=== PATIENT | female | born 1995 | race Caucasian/White ===

== ENCOUNTER 2024-07-26 16:16 | Emergency (ER) | payer BC, SELFPAY ==
[2024-07-26 16:28] VITALS: BP 114/70; PULSE 115; RESP 18; TEMP 37.6; O2SAT 94; BMI 23.0
--- NOTE | 2024-07-26 18:35 | ED.GENADULT ---
HPI - General Adult General Date Seen: 07/26/24 Chief complaint: Flank Pain Stated complaint: Potential Kidney Infection Time Seen by Provider: 07/26/24 18:32 History of Present Illness HPI narrative: 28-year-old female presenting to the ER today with fever, chills, right flank pain. She does have a history of asthma. No history of UTIs or kidney infections. No history of kidney stones. She has been experiencing illness for the past couple of days with pain predominantly in her right flank also some fever and chills. Mother mild achiness but no other significant back pain. She also has a history of asthma and has been having some cough with production of some sputum in small flecks of hemoptysis for the past couple of days. Mild sore throat. No trouble swallowing. No significant headache. Appetite been decreased, , but she has been drinking plenty of fluids. Bowel movements have been normal. No dysuria, urgency, frequency but she has noted somewhat dark colored urine for the past couple of days. No anterior abdominal pain. She has history of asthma and says she occasionally had to use her albuterol rescue inhaler but is not on in the controller meds. She sees says she tends to be it little bit wheezy every day, and that is normal for her. Related Data Previous Rx's ?Medication ?Instructions ?Recorded albuterol sulfate 90 mcg/actuation 2 inh inhalation Q4H PRN #1 ea 07/26/24 breath activated powder inhaler cefdinir 300 mg capsule 300 mg PO BID 7 days #14 caps 07/26/24 doxycycline hyclate 100 mg capsule 100 mg PO BID 7 days #14 caps 07/26/24 ondansetron 4 mg disintegrating 4 mg PO Q8H PRN nausea and 07/26/24 tablet vomiting #10 tabs prednisone 20 mg tablet 40 mg (2 x 20 mg) PO DAILY 4 days 07/26/24 #8 tabs Allergies Allergy/AdvReac Type Severity Reaction Status Date / Time No Known Drug Allergies Allergy Verified 07/26/24 16:27 Exam Narrative: Exam Narrative: Constitutional: Appears well-developed and well-nourished. Alert. Conversant. Very polite. Non toxic. HENT: Head: Atraumatic. Nose: Nose normal. Mouth/Throat: Oral mucosa is clear and moist. no trismus. Pharynx normal. Tonsils symmetric. No tonsillar enlargement, erythema, or exudate. Tympanic membranes normal. Eyes: Conjunctivae normal. EOM normal. Pupils equal, round, and reactive to light. No scleral icterus. Neck: Normal range of motion. Neck supple. No tracheal deviation present. No stiffness. No JVD. Cardiovascular: Normal rate, regular rhythm. No gallop. No friction rub. No murmur heard. Symmetric radial artery pulses Pulmonary/Chest: Effort normal. No stridor. No respiratory distress. Bilateral coarse inspiratory and expiratory wheezes. No rales. No rhonchi . No tenderness. Abdominal: Soft. Bowel sounds normal. No distension. No mass. Right CVA tenderness. No right upper quadrant or anterior tenderness. No rebound. No guarding. Musculoskeletal: RUE: Normal range of motion. No tenderness. No deformity LUE: Normal range of motion. No tenderness. No deformity RLE: Normal range of motion. No edema. No tenderness. No deformity LLE: Normal range of motion. No edema. No tenderness. No deformity Neurological: Alert and oriented to person, place, and time. Normal strength. CN II-VII intact. No sensory deficit. GCS eye subscore is 4. GCS verbal subscore is 5. GCS motor subscore is 6. Normal coordination Skin: Skin is warm and dry. No rash noted. No pallor. Normal capillary refill. Psychiatric: Normal mood. Normal affect. Const: Vital Signs, click to edit/add: Vital Signs - 24 hr 07/26/24 16:28 Temperature 99.6 F Pulse Rate [Pulse Oximeter] 115 H Respiratory Rate 18 Blood Pressure [[facility]] 114/70 Pulse Oximetry 94 Oxygen Delivery Me thod Room Air Course Course ED Course: Recheck-after neb lung sounds are much less wheezy but still has some wheezing. She says she is breathing at her baseline. Vital Signs Vital signs: Initial Vital Signs Temperature 99.6 F 07/26/24 16:28 Temperature Source Oral 07/26/24 16:28 Pulse Rate 115 H 07/26/24 16:28 Respiratory Rate 18 07/26/24 16:28 Blood Pressure 114/70 07/26/24 16:28 Blood Pressure Mean 84 07/26/24 16:28 Blood Pressure Position Sitting 07/26/24 16:28 Pulse Oximetry 94 07/26/24 16:28 Oxygen Delivery Method Room Air 07/26/24 16:28 Vital Signs Temperature 99.6 F 07/26/24 16:28 Pulse Rate 115 H 07/26/24 16:28 Respiratory Rate 18 07/26/24 16:28 Blood Pressure 114/70 07/26/24 16:28 Pulse Oximetry 94 07/26/24 16:28 Oxygen Delivery Method Room Air 07/26/24 16:28 Temperature 99.6 F 07/26/24 16:28 Pulse Rate 115 H 07/26/24 16:28 Respiratory Rate 18 07/26/24 16:28 Blood Pressure 114/70 07/26/24 16:28 Pulse Oximetry 94 07/26/24 16:28 Oxygen Delivery Method Room Air 07/26/24 16:28 Medications Administered Medications: Discontinued Medications Generic Name Dose Route Start Last Admin Trade Name Freq PRN Reason Stop Dose Admin Albuterol/Ipratropium 1 neb 07/26/24 18:45 07/26/24 19:13 Iprat-Albut 0.5-2.5 Mg/3 Ml Neb IH 07/26/24 18:46 1 neb ONCE ONE Administration Sodium Chloride 500 mls @ 500 mls/hr 07/26/24 18:55 07/26/24 20:05 0.9 % Sodium Chloride 500 Ml IV 07/26/24 19:54 Infused .Q1H ONE Infusion Ceftriaxone Sodium 1 gm/ 100 mls @ 200 mls/hr 07/26/24 19:22 07/26/24 20:05 Sodium Chloride IVPB 07/26/24 19:23 Infused ONCE ONE Infusion Prednisone 40 mg 07/26/24 18:45 07/26/24 19:13 Prednisone 20 Mg Tablet PO 07/26/24 18:46 40 mg ONCE ONE Administration Medical Decision Making [facility] Narrative Medical decision making narrative: Pleasant 28-year-old female with a history of asthma presenting to the ER today with multiple symptoms. Predominately she is having right flank pain. She is also having fever, cough, production of sputum with tinges of hemoptysis , wheezing, no significant shortness of breath. No hypoxia. In terms of her flank pain, urinalysis is abnormal show with positive nitrite and positive white cells. Indicative of UTI and with current symptoms, likely suggestive of pyelonephritis. Started on IV Rocephin here in the ER. No dysuria, urgency frequency, but presentation concerning for possible kidney infection. Started on IV Rocephin here in the [place] [id number],. She is otherwise well appearing, hemodynamically stable With her cough, influenza/COVID PCR is obtained and is negative. Chest x-rays negative for pneumonia by my read but does show perihilar opacities per Radiology. Therefore will broaden antibiotic coverage with doxycycline as well as cephalosporin. She is also wheezy. She has a history of asthma and I suspect this is probably an asthma exacerbation triggered by the infection in her lungs. Treated with DuoNeb and steroids here in the ER. She had improvement in wheezing but still has some residual wheeze. She says she typically always has wheeze, and is feeling fine, back to her respiratory baseline. She is not having any respiratory distress, difficulty breathing, hypoxia. Will treat her with albuterol inhaler at home, 5 day burst of prednisone. Advised close outpatient follow-up primary care to discuss her asthma. She likely will need some better long-term controller medications. This point patient is feeling better and desiring discharge. I think outpatient management of her kidney infection is reasonable. Will start her on cephalosporins. Urine culture pending. Precautions for return to the ER reviewed Lab Data Labs: Lab Results 07/26/24 07/26/24 Range/Units 18:45 19:15 WBC 18.36 H (4.50-11.00) K/uL RBC 4.51 (4.00-5.20) m/uL Hgb 12.7 (12.0-16.0) gm/dL Hct 38.9 (33.0-51.0) % MCV 86 (80-100) fL MCH 28 (26-34) pg MCHC 33 (32-36) gm/dL RDW Coeff of Emery 12.7 (11.5-15.5) % Plt Count 381 (140-440) K/uL Neut % (Auto) 66.8 (42.0-72.0) % Lymph % (Auto) 10.6 L (20-44) % [place] % (Auto) 7.2 (0.0-11.0) % Eos % (Auto) 14.7 H (0.0-7.0) % Baso % (Auto) 0.4 (0.0-3.0) % Neut # (Auto) 12.30 H (1.7-7.0) K/uL Lymph # (Auto) 1.90 (0.90-2.90) K/uL [place] # (Auto) 1.30 H (0.00-0.90) K/UL Eos # (Auto) 2.70 H (0.00-0.50) K/uL Baso # (Auto) 0.10 (0.00-0.30) K/uL Abs Immat Gran (auto) 0.10 (0.00-0.30) K/uL Imm/Tot Granulo (auto) 0.3 % Sodium 135 (135-149) mmol/L Potassium 3.3 L (3.6-5.1) mmol/L Chloride 101 (96-114) mmol/L Carbon Dioxide 27 (20-32) mmol/L Anion Gap 7 (7-15) mEq/L BUN 9 (5-24) mg/dL Creatinine 0.5 (0.5-1.5) mg/dL Estimated Creat Clear 149.39 Estimated GFR 130 ml/min Glucose 98 (60-115) mg/dL Lactate 1.1 (0.5-1.9) mmol/L Calcium 8.5 (8.4-10.6) mg/dL Urine Color [place] A (Yellow) Urine Appearance Clear (Clear) Urine pH 5.5 (5.0-8.5) Ur Specific [place] >= 1.030 (1.000-1.030) Urine Protein 3+ A (Negative) Urine Glucose (UA) Negative (Negative) Urine Ketones Trace A (Negative) Urine Blood Negative (Negative) Urine Nitrite Positive A (Negative) Urine Bilirubin 1+ A (Negative) Urine Urobilinogen 1.0 (0.2-1.0) Ur Leukocyte Esterase Negative (Negative) Urine RBC 0-2 (0-2) Urine WBC 5-10 A (0-5) Ur Squamous Epith Cells Many A (None-Few) Urine Bacteria Many A (None) Urine Mucus Moderate A (None) Urine HCG, Qual Negative (Negative) SARS-CoV-2 (PCR) Negative SARS-CoV-2 (Negative) Influenza Type A (PCR) Negative PCR FLU A (Negative) Influenza Type B (PCR) Negative PCR FLU B (Negative) Imaging Data Chest x-ray: Attestation: I have reviewed the pertinent imaging results. My impression: Negative. No infiltrates. No pleural effusion. No pneumothorax. Radiologist's impression: IMPRESSION: Subtle patchy bilateral perihilar infiltrates, likely pneumonia in the appropriate clinical setting. Discharge Plan Discharge Clinical Impression: Pyelonephritis, Community acquired pneumonia, Asthma exacerbation Patient Disposition: Home, Self-Care Condition: Stable Instructions: Asthma (ED), Kidney Infection (ED), Pneumonia (ED) Additional Instructions: As we discussed, please come back to the ER right away if you have worsening of your condition, especially worsening pain in her kidney, high fever, weakness, uncontrolled vomiting or dehydration, or if you have worsening trouble breathing. Please recheck with your regular doctor within 1 week for recheck. If you need to schedule and new primary care provider here in [place] you can call [phone] To treat your asthma, please do the steroids once daily for the next 4 days. Use your albuterol inhaler 2 puffs every 4 hours as needed To treat your kidney infection, take the antibiotics twice daily as prescribed for. Take the combination of both antibiotics to cover for your pneumonia. Prescriptions: New doxycycline hyclate 100 mg capsule 100 mg PO BID 7 Days Qty: 14 0RF cefdinir 300 mg capsule 300 mg PO BID 7 Days Qty: 14 0RF prednisone 20 mg tablet 40 mg PO DAILY 4 Days Qty: 8 0RF albuterol sulfate 90 mcg/actuation aerosol powdr breath activated 2 inh inhalation Q4H PRNQty: 1 0RF ondansetron 4 mg tablet,disintegrating 4 mg PO Q8H PRN (Reason: nausea and vomiting) Qty: 10 0RF Follow Up/Referrals: Provider,Not a Local [Primary Care Provider] - Stand Alone Forms: Handle Info Instructions
--- NOTE | 2024-07-26 18:45 | CRLHL7_ITS ---
For Patients: As a result of the Cures Act, medical imaging exams and procedure reports are released immediately into your electronic medical record. You may view this report before your referring provider. If you have questions, please contact your health care provider. INDICATION: Cough. TECHNIQUE: Chest 2 views. COMPARISON: None. FINDINGS: Cardiovascular and mediastinum: Heart size and vasculature are normal in caliber and appearance. Lungs and pleural spaces: Subtle patchy bilateral perihilar infiltrates. No sign of pleural effusion. No pneumothorax. Bones and soft tissues: No significant findings. IMPRESSION: Subtle patchy bilateral perihilar infiltrates, likely pneumonia in the appropriate clinical setting. Dictated by Shyam Dubon MD @ 07/26/2024 7:08:38 PM (Electronically Signed)
[2024-07-26 18:57] LABS: Appearance Urine Clear (Clear); Bilirubin Urine 1+ (Negative); Blood Urine Negative (Negative); Color Urine Orange (Yellow); Glucose Urine Negative (Negative); Ketones Urine Trace (Negative); Leukocyte Esterase Urine Negative (Negative); Nitrite Urine Positive (Negative); Protein Urine 3+ (Negative); Specific Gravity Urine >= 1.030 (1.000-1.030); pH Urine 5.5 (5.0-8.5)
[2024-07-26 18:59] LABS: Ur HCG Qualitative* Negative (Negative)
[2024-07-26] MEDS: 0.9 % SODIUM CHLORIDE 500 ML 500 ML IV (19:12)
[2024-07-26] MEDS: predniSONE 20 MG TABLET 40 MG PO (19:13)
[2024-07-26] MEDS: IPRAT-ALBUT 0.5-2.5 MG/3 ML NEB 1 NEB IH (19:13)
[2024-07-26 19:18] LABS: Bacteria Urine Many; Mucus Urine Moderate; RBC Urine 0-2 (0-2); Squamous Epithelial Cell Urine Many (None-Few)
[2024-07-26] MEDS: cefTRIAXone 1 GM in 0.9 % SODIUM CHLORIDE Mini-bag 100 ML IVPB (19:32)
[2024-07-26 19:33] LABS: Lactate* 1.1 mmol/L (0.5-1.9)
--- OUTSIDE RECORDS SUMMARY | 2024-07-26 19:45 | XMS_ITS | Clinical Summary ---
Author Organization [email or web address] [facility] Address [place], [place] [address] Care Team Providers Care Sand Polisher Name Role Phone Pcp, No Primary Care Provider Unavailabl e Allergies No known active allergies Medications NebulizerIndicati ons:Wheezing Nebulizer, disposable neb kit x 4, reuseable neb kit x 1, mask x 1, filters x 1. Frequency of use: daily; Length of need: 99 months 1 Device 0 Active albuterol HFA (PRO-AIR; VENTOLIN; PROVENTIL) 90 mcg/actuation inhalerIndication s:SOB (shortness of breath) Inhale 1-2 Puffs by mouth every 4 hours if needed. 1 Each 11 1 Active albuterol-ipratro pium (DUONEB) (2.5-0.5 mg) in 3 mL NEBULIZATION solutionIndicatio ns:Mild intermittent reactive airway disease without complication Inhale 3 mL via a nebulizer 4 times daily. 1 box 11 1 Active fluticasone propion-salmetero L (Advair HFA) 230-21 mcg/actuation inhalerIndication s:Reactive airway disease without complication, unspecified asthma severity, unspecified whether persistent Inhale 2 Puffs by mouth every 12 hours. 12 g 6 2 Active fluticasone propion-salmetero L (Advair Diskus) 250-50 mcg/Dose diskus inhalerIndication s:Mild persistent asthma, unspecified whether complicated Inhale 1 Puff by mouth every 12 hours. 60 Each 5 2 Active Active Problems Problem Noted Date Diagnosed Date Bronchospasm 08/23/2020 Wheezing 08/23/2020 SOB (shortness of breath) 08/23/2020 History of tobacco use 08/23/2020 Immunizations Name Administration Dates Next Due DTaP 01/25/2000, 6,07/01/1995,05/06/1995,0 03/07/1995 Hepatitis B (Peds) 09/11/2000,01/25/2000 Hepatitis B, Unspecified 03/10/2001 Hib Conjugate, Unspecified 04/09/1996,07/01/1995 ,05/06/1995,03/07/1995 Inactivated Polio Vaccine 01/25/2000 Influenza, IIV3 (Age 6-35 mos) 04/12/2009 MMR 01/25/2000,04/09/1996 Polio Virus, Unspecified 07/01/1995,05/06/1995,0 03/07/1995 Td (Age >=7 Years) 09/26/2006 Family History Medical History Relation Name Comments No Known Problems Brother No Known Problems Father No Known Problems Mother Asthma Paternal Aunt No Known Problems Sister Relation Name Status Comments Brother Alive Father Alive Mother Alive Paternal Aunt Alive Sister Alive Social History Tobacco Use Types Packs/Day Years Used Date Smoking Tobacco: Former Cigarettes 1 10 0 08/23/2010 - 05/16/2020 Smokeless Tobacco: Never Alcohol Use Standard Drinks/Week Comments Not Currently 0 (1 standard drink = 0.6 oz pur e alcohol) Social Connections Answer Date Recorded Frequency of Communication with Friends and Fami ly Not on file 07/15/2021 Financial Resource Strain Answer Date R ecorded Difficulty of Paying Living Expenses Not on file 07/15/2021 Difficulty of Paying Living Expenses Not on file 07/15/2021 Comments No Sex and Gender Information Value Date Recorded Sex Assigned at Not on file Legal Sex Female 5:08 PM STATIONARY ENGINEER Gender Identity Not on file Sexual Orientation Not on file Obstetrics History Last Filed Vital Signs Vital Sign Reading Time Taken Comments Blood Pressure 100/64 09/12/2021 10:31 AM STATIONARY ENGINEER Pulse 96 09/12/2021 10:31 AM STATIONARY ENGINEER Temperature 36.7 C (98.1 F) 06/22/2021 11:59 AM STATIONARY ENGINEER Respiratory Rate 16 09/12/2021 10:31 AM STATIONARY ENGINEER Oxygen Saturation 97% 09/12/2021 10:31 AM STATIONARY ENGINEER Inhaled Oxygen Concentration - - Weight 85.7 kg (189 lb) 09/12/2021 10:31 AM STATIONARY ENGINEER Height 165.1 cm (5' 5) 09/12/2021 10:31 AM STATIONARY ENGINEER Body Mass Index 31.45 09/12/2021 10:31 AM STATIONARY ENGINEER Plan of Treatment Health Maintenance Due Date Last Done Comments Tdap 2005 Depression screening for age 12+ 2006 HIV for age 15-65 2009 Hepatitis C screening for age 18-79 2012 Pap test for age 21-65 12/25/2015 Tetanus booster 09/26/2016 09/26/2006 BMI (ht and wt on same day) for age 18+ 09/12/2022 09/12/2021, 06/22/2021, 05/17/2021, Additional history exists COVID-19 vaccine series (2023-25 season) 2024 Influenza for age 9-49 03/15/2024 Pneumococcal series for age 6-49 Aged Out No longer eligible based on patient's age to complete this topic Insurance [facility] Care Teams Sand Polisher Relationship Specialty Start Date End Date Pcp, No . PCP - General 11/16/22
--- OUTSIDE RECORDS SUMMARY | 2024-07-26 19:45 | XMS_ITS | Clinical Summary ---
Author Organization [facility] Address [address] [place] [address] Care Team Providers Care Gang Ripsaw Operator Name Role Phone Inactive, Marckl Primary Care Provider Source Comments If you need additional information that is not available on Care Everywhere, please contact our Medical Records Department during business hours (Saturday - Saturday, 8 am - 5 pm) at . During nonbusiness hours, please contact our Trauma and Emergency Center at .[facility] Allergies No known active allergies Medications * Medications may not be up to date as of this document. Always verify current medications with the patient. No known medications Active Problems No known active problems Surgical History Surgery Date Site/Laterality Comments NO PAST SURGERIES Medical History Medical History Date Comments No abnormality seen Family History Medical History Relation Name Comments Asthma Paternal Grandfather Asthma Paternal Grandmother Relation Name Status Comments Brother Alive Father Alive Maternal Grandfather Maternal Grandmother Mother Alive Paternal Grandfather Alive Paternal Grandmother Alive Sister Alive Social History Tobacco Use Types Packs/Day Years Used Date Smoking Tobacco: Never Smokeless Tobacco: Never Tobacco Cessation:Counseling Given: No Alcohol Use Standard Drinks/Week Comments No 0 (1 standard drink = 0.6 oz pur e alcohol) Comments Unknown Sex and Gender Information Value Date Recorded Sex Assigned at Not on file Legal Sex Female 10:18 AM CDT Gender Identity Not on file Sexual Orientation Not on file Obstetrics History Para Term AB IAB SAB Ectopic Molar Multiple Living Live Births 0 0 0 0 0 0 0 0 0 0 Last Filed Vital Signs Vital Sign Reading Time Taken Comments Blood Pressure 120/68 10/16/2013 10:48 AM CDT Pulse - - Temperature - - Respiratory Rate - - Oxygen Saturation - - Inhaled Oxygen Concentration - - Weight 85.7 kg (188 lb 14.4 oz) 014 10:48 AM CDT Height 166.2 cm (5' 5.43) 10/16/2013 1 0:48 AM CDT Body Mass Index 31.02 10/16/2013 10:48 AM CDT Plan of Treatment Health Maintenance Due Date Last Done Comments DIABETES SCREENING 1994 DEPRESSION/ANXIETY PHQ4 2006 CERVICAL CANCER SCREENING 2012 LIPID SCREEN 2012 WELLNESS VISIT 2012 DTaP/Tdap/Td Vaccine (1 - Tdap) 2013 Hepatitis B Vaccine (1 of 3 - 19+ 3-dose series) 2013 PERTUSSIS 2013 COVID-19 Vaccine ( - 2023-2 5 season) 2024 Influenza Vaccine (#1) 2024 RSV Vaccines (1 - 1-dose 75+ series) 2069 HPV Vaccine Aged Out No longer eligi ble based on patient's age to complete this topic POLIO (IPV) Vaccine Aged Out No longe r eligible based on patient's age to complete this topic Pneumococcal Vaccine: Pediat rics (0 to 5 Years) and At-Risk Patients (6 to 49 Years) Aged Out No longer eligi ble based on patient's age to complete this topic Insurance [facility] Care Teams Gang Ripsaw Operator Relationship Specialty Start Date End Date Inactive, Administrativel [phone] [id number] [facility] - General 10/06/21
[2024-07-26 19:51] LABS: Basophils Percent Auto 0.4 % (0.0-3.0); Eosinophils Percent Auto 14.7 % (0.0-7.0); Hematocrit 38.9 % (33.0-51.0); Hemoglobin* 12.7 gm/dL (12.0-16.0); Immature Granulocytes Pct Auto 0.3 %; Lymphocytes Percent Auto 10.6 % (20-44); Mean Corpuscular HGB Conc 33 gm/dL (32-36); Mean Corpuscular Hemoglobin 28 pg (26-34); Mean Corpuscular Volume 86 fL (80-100); Monocytes Percent Auto 7.2 % (0.0-11.0); Neutrophils Percent Auto 66.8 % (42.0-72.0); Platelet Count* 381 K/uL (140-440); RDW Coefficient of Variation % 12.7 % (11.5-15.5); Red Blood Count 4.51 m/uL (4.00-5.20); White Blood Count* 18.36 K/uL (4.50-11.00)
[2024-07-26 19:57] LABS: PCR FLU A Negative PCR FLU A (Negative); PCR FLU B Negative PCR FLU B (Negative); SARS PCR* Negative SARS-CoV-2 (Negative)
[2024-07-26 19:58] LABS: Slide Review Reflex No
[2024-07-26 20:09] LABS: Chloride* 101 mmol/L (96-114); Potassium* 3.3 mmol/L (3.6-5.1); Sodium* 135 mmol/L (135-149)
[2024-07-26 20:12] LABS: Anion Gap 7 mEq/L (7-15); Blood Urea Nitrogen* 9 mg/dL (5-24); Carbon Dioxide* 27 mmol/L (20-32); Creatinine* 0.5 mg/dL (0.5-1.5); Est. Creatinine Clearance* 149.39; Estimated Glomerular Filt Rate 130 ml/min
[2024-07-26 20:13] LABS: Calcium* 8.5 mg/dL (8.4-10.6); Glucose* 98 mg/dL (60-115)
--- NOTE | 2024-07-28 11:09 | ED_ITS ---
HPI - General Adult General Date Seen: 07/26/24 Chief complaint: Flank Pain Stated complaint: Potential Kidney Infection Time Seen by Provider: 07/26/24 18:32 History of Present Illness HPI narrative: Culture grow E coli. sensitive to cephalosporins. on cefdinir. got rocephin in ER Related Data Previous Rx's ?Medication ?Instructions ?Recorded albuterol sulfate 90 mcg/actuation 2 inh inhalation Q4H PRN #1 ea 07/26/24 breath activated powder inhaler cefdinir 300 mg capsule 300 mg PO BID 7 days #14 caps 07/26/24 doxycycline hyclate 100 mg capsule 100 mg PO BID 7 days #14 caps 07/26/24 ondansetron 4 mg disintegrating 4 mg PO Q8H PRN nausea and 07/26/24 tablet vomiting #10 tabs prednisone 20 mg tablet 40 mg (2 x 20 mg) PO DAILY 4 days 07/26/24 #8 tabs Allergies Allergy/AdvReac Type Severity Reaction Status Date / Time No Known Drug Allergies Allergy Verified 07/26/24 16:27 Course Vital Signs Vital signs: Initial Vital Signs Temperature 99.6 F 07/26/24 16:28 Temperature Source Oral 07/26/24 16:28 Pulse Rate 115 H 07/26/24 16:28 Respiratory Rate 18 07/26/24 16:28 Blood Pressure 114/70 07/26/24 16:28 Blood Pressure Mean 84 07/26/24 16:28 Blood Pressure Position Sitting 07/26/24 16:28 Pulse Oximetry 94 07/26/24 16:28 Oxygen Delivery Method Room Air 07/26/24 16:28 Vital Signs Temperature 99.6 F 07/26/24 16:28 Pulse Rate 115 H 07/26/24 16:28 Respiratory Rate 18 07/26/24 16:28 Blood Pressure 114/70 07/26/24 16:28 Pulse Oximetry 94 07/26/24 16:28 Oxygen Delivery Method Room Air 07/26/24 16:28 Temperature 99.6 F 07/26/24 16:28 Pulse Rate 115 H 07/26/24 16:28 Respiratory Rate 18 07/26/24 16:28 Blood Pressure 114/70 07/26/24 16:28 Pulse Oximetry 94 07/26/24 16:28 Oxygen Delivery Method Room Air 07/26/24 16:28 Medications Administered Medications: Discontinued Medications Generic Name Dose Route Start Last Admin Trade Name Freq PRN Reason Stop Dose Admin Albuterol/Ipratropium 1 neb 07/26/24 18:45 07/26/24 19:13 Iprat-Albut 0.5-2.5 Mg/3 Ml Neb IH 07/26/24 18:46 1 neb ONCE ONE Administration Sodium Chloride 500 mls @ 500 mls/hr 07/26/24 18:55 07/26/24 20:05 0.9 % Sodium Chloride 500 Ml IV 07/26/24 19:54 Infused .Q1H ONE Infusion Ceftriaxone Sodium 1 gm/ 100 mls @ 200 mls/hr 07/26/24 19:22 07/26/24 20:05 Sodium Chloride IVPB 07/26/24 19:23 Infused ONCE ONE Infusion Prednisone 40 mg 07/26/24 18:45 07/26/24 19:13 Prednisone 20 Mg Tablet PO 07/26/24 18:46 40 mg ONCE ONE Administration Medical Decision Making Lab Data Labs: Lab Results 07/26/24 07/26/24 Range/Units 18:45 19:15 WBC 18.36 H (4.50-11.00) K/uL RBC 4.51 (4.00-5.20) m/uL Hgb 12.7 (12.0-16.0) gm/dL Hct 38.9 (33.0-51.0) % MCV 86 (80-100) fL MCH 28 (26-34) pg MCHC 33 (32-36) gm/dL RDW Coeff of [place] 12.7 (11.5-15.5) % Plt Count 381 (140-440) K/uL Neut % (Auto) 66.8 (42.0-72.0) % Lymph % (Auto) 10.6 L (20-44) % Ida % (Auto) 7.2 (0.0-11.0) % Eos % (Auto) 14.7 H (0.0-7.0) % Baso % (Auto) 0.4 (0.0-3.0) % Neut # (Auto) 12.30 H (1.7-7.0) K/uL Lymph # (Auto) 1.90 (0.90-2.90) K/uL Ida # (Auto) 1.30 H (0.00-0.90) K/UL Eos # (Auto) 2.70 H (0.00-0.50) K/uL Baso # (Auto) 0.10 (0.00-0.30) K/uL Abs Immat Gran (auto) 0.10 (0.00-0.30) K/uL Imm/Tot Granulo (auto) 0.3 % Sodium 135 (135-149) mmol/L Potassium 3.3 L (3.6-5.1) mmol/L Chloride 101 (96-114) mmol/L Carbon Dioxide 27 (20-32) mmol/L Anion Gap 7 (7-15) mEq/L BUN 9 (5-24) mg/dL Creatinine 0.5 (0.5-1.5) mg/dL Estimated Creat Clear 149.39 Estimated GFR 130 ml/min Glucose 98 (60-115) mg/dL Lactate 1.1 (0.5-1.9) mmol/L Calcium 8.5 (8.4-10.6) mg/dL Urine Color [place] A (Yellow) Urine Appearance Clear (Clear) Urine pH 5.5 (5.0-8.5) Ur Specific [place] >= 1.030 (1.000-1.030) Urine Protein 3+ A (Negative) Urine Glucose (UA) Negative (Negative) Urine Ketones Trace A (Negative) Urine Blood Negative (Negative) Urine Nitrite Positive A (Negative) Urine Bilirubin 1+ A (Negative) Urine Urobilinogen 1.0 (0.2-1.0) Ur Leukocyte Esterase Negative (Negative) Urine RBC 0-2 (0-2) Urine WBC 5-10 A (0-5) Ur Squamous Epith Cells Many A (None-Few) Urine Bacteria Many A (None) Urine Mucus Moderate A (None) Urine HCG, Qual Negative (Negative) SARS-CoV-2 (PCR) Negative SARS-CoV-2 (Negative) Influenza Type A (PCR) Negative PCR FLU A (Negative) Influenza Type B (PCR) Negative PCR FLU B (Negative) Discharge Plan Discharge Clinical Impression: Pyelonephritis, Community acquired pneumonia, Asthma exacerbation Patient Disposition: Home, Self-Care Condition: Stable Instructions: Asthma (ED), Kidney Infection (ED), Pneumonia (ED) Additional Instructions: As we discussed, please come back to the ER right away if you have worsening of your condition, especially worsening pain in her kidney, high fever, weakness, uncontrolled vomiting or dehydration, or if you have worsening trouble breathing. Please recheck with your regular doctor within 1 week for recheck. If you need to schedule and new primary care provider here in [place] you can call [phone] To treat your asthma, please do the steroids once daily for the next 4 days. Use your albuterol inhaler 2 puffs every 4 hours as needed To treat your kidney infection, take the antibiotics twice daily as prescribed for. Take the combination of both antibiotics to cover for your pneumonia. Prescriptions: New doxycycline hyclate 100 mg capsule 100 mg PO BID 7 Days Qty: 14 0RF cefdinir 300 mg capsule 300 mg PO BID 7 Days Qty: 14 0RF prednisone 20 mg tablet 40 mg PO DAILY 4 Days Qty: 8 0RF albuterol sulfate 90 mcg/actuation aerosol powdr breath activated 2 inh inhalation Q4H PRNQty: 1 0RF ondansetron 4 mg tablet,disintegrating 4 mg PO Q8H PRN (Reason: nausea and vomiting) Qty: 10 0RF Follow Up/Referrals: Provider,Not a Local [Primary Care Provider] - Stand Alone Forms: [employer] Info Instructions
== END 2024-07-26 21:24 | disposition home or self-care (01) ==
PROVIDERS: Emergency Provider Emergency Medicine
DX: N12 Tubulo-interstitial nephritis, not specified as acute or chronic (principal); J18.9 Pneumonia, unspecified organism; J45.901 Unspecified asthma with (acute) exacerbation
CPT/HCPCS: 36415; 71046; 80048; 81001; 81025; 83605; 85025; 87086; 87186; 87631; 96365; 99281; 99284; J0696; J7030; J7512